=== PATIENT | male | born 1945 | race Caucasian/White ===

== ENCOUNTER → 2017-03-01 | Outpatient (CLI) | payer MEDICARE, BC ==
[~2017-03-01] MED LIST: CLON-276 PO
--- NOTE | 2017-03-01 09:54 | RAD ---
CT of the head without contrast, 03/01/2017: History: Headache, right-sided weakness, slurred speech There is mild to moderate cerebral atrophy, most prominent in the frontal regions. The ventricles are within normal limits in size. There is no shift of the midline structures. There is no evidence of acute intracranial hemorrhage or mass effect. Air-fluid levels are present in the left maxillary sinus and the right sphenoid sinus. There is moderate mucosal thickening in both ethmoid sinuses. IMPRESSION: 1. Cerebral atrophy. 2. No acute intracranial abnormality is detected. 3. Paranasal sinusitis. PQRS Compliance Statement: One or more of the following individualized dose reduction techniques were utilized for this examination: 1. Automated exposure control 2. Adjustment of the mA and/or kV according to patient size 3. Use of iterative reconstruction technique
== END | disposition home or self-care (01) ==
LOC: RAD 09:04
PROVIDERS: ATTEND Physician Assistant
DX: G31.89 Other specified degenerative diseases of nervous system (principal); J32.9 Chronic sinusitis, unspecified
CPT/HCPCS: 70450

== ENCOUNTER 2017-03-03 20:21 | Emergency (ER) | payer MEDICARE, BC ==
[~2017-03-03] VITALS: Ht 175.3 cm; Wt 74.8 kg
--- NOTE | 2017-03-03 20:40 | PHYS DOC ---
General Chief Complaint: HYPERTENSION Stated Complaint: HIGH BLOOD PRESSURE,MINI STROKE FEB 28 Time Seen by MD: 20:25 Source: patient Exam Limitations: no limitations Problems: History of Present Illness Initial Comments Patient is a 72-year-old male who comes to the ED complaining of uncontrolled blood pressure. Patient states that he endured what he calls a "mini stroke" 2 days ago experiencing a severe headache with right-sided facial droop and right sided upper and lower extremity weakness. He says he saw his primary care provider and CT of the head was negative, he was not admitted to the hospital and no further testing was undertaken. He was advised to closely monitor his blood pressure at home and takes lisinopril 20 mg daily. They use an electric blood pressure monitor at home and state that his readings since Sunday have consistently been in the 170s over 90s. Tonight while watching Taty shows his systolic pressure was in the 190s and they felt they needed to come be seen in the emergency department. Patient denies any headache vision change or new neurologic deficit and in fact states that the deficits suffered 2 days ago have been improving somewhat. He is scheduled to see a lead oracle developer for carotid another vascular evaluations, denies any chest pain shortness of breath nausea or vomiting. On arrival his systolic pressures in the 170s and he is asymptomatic. Timing/Duration: other Severity: moderate Modifying Factors: improves with other Associated Symptoms: other Allergies: Coded Allergies: No Known Drug Allergies (Unverified , 10/04/13) Past Medical History Medical History: CVA/TIA/stroke, hypertension Surgical History: noncontributory Social History Smoker: non-smoker Alcohol: none Drugs: none Review of Systems Constitutional: denies chills, denies diaphoresis, denies fever, denies malaise EENTM: see HPI Respiratory: denies cough, denies shortness of breath, denies wheezing Cardiovascular: denies chest pain, denies palpitations, denies syncope Gastrointestinal: denies abdominal pain, denies nausea, denies vomiting Musculoskeletal: denies back pain, denies joint swelling, denies neck pain Psychiatric/Neurological: see HPI Hematologic/Lymphatic: denies blood clots, denies easy bleeding, denies easy bruising Physical Exam General Appearance: WD/WN, moderate distress (anxious) Eyes: bilateral eye normal inspection, bilateral eye PERRL, bilateral eye EOMI Ear, Nose, Throat: hearing grossly normal, normal ENT inspection Neck: non-tender, supple Respiratory: chest non-tender (moderate pectus excavator deformity), normal breath sounds, no respiratory distress Cardiovascular: normal peripheral pulses, regular rate, rhythm Gastrointestinal: non tender, soft Back: no CVA tenderness, no vertebral tenderness Extremities: normal range of motion, non-tender Neurologic/Psychiatric: alert, oriented x 3, other (anxious, right upper and lower extremity muscle strength 4/5 left is 5 over 5, right sided facial droop) Skin: normal color, warm/dry Orders, Labs, Meds EKG: Normal sinus rhythm 71 bpm, normal axis and no ST segment elevation. Interpreted by me Patient received Lopressor 5 mg IV and his blood pressure improved to 160/70's. No improvement in symptoms as he was asymptomatic in the first place. However the patient is much less anxious. I discussed blood pressure and hypertensive emergencies as well as how they relate to CVAs. I discussed prescription medication and adding clonidine for when necessary use until he can see his doctor for blood pressure medication titration. Signs and symptoms to monitor as well as urgent indication to return to the department were discussed the patient and his 's questions were answered. He expressed agreement and understanding with treatment plan. Departure Time of Disposition: 21:52 Disposition: HOME, SELF-CARE Diagnosis: HTN uncontrolled, h/o CVA Condition: GOOD Patient Instructions: Hypertension, Yywo-af-Cmph Additional Instructions: Rest no strenuous activity. Continue current medications. Prescription: Clonidine 0.2, take one twice daily when necessary blood pressure greater than 170/90. Follow-up with your doctor on Sunday for recheck and medication titration. Return to ED with new or changing symptoms. DILIA JUDGE DO Mar 03, 2017 20:40
--- NOTE | 2017-03-03 20:57 | EKG ---
[address] [address] Test Date: 2017-03-03 Test Time: 20:37:24 Pat Name: FRANK LINDSEY Department: Room: Gender: M Shoe Cleaner: ELIANA : 1945 Requested By: DILIA JUDGE Order Number: [id number] Reading MD: Felipe Linares MD Measurements Intervals Johnson Rate: 71 P: 48 ID: [id number] QRS: 34 QRSD: 94 T: 11 QT: 388 QTc: 426 Interpretive Statements SINUS RHYTHM Electronically Signed On 03-12-2017 11:53:43 WOUND/OSTOMY CLINICAL NURSE SPECIALIST by Felipe Linares MD
[2017-03-03] MEDS ORDERED: METOPROLOL TARTRATE 5 MG/5 ML VIAL. IV ONE (21:15)
[2017-03-03] MEDS ORDERED: CLON-276 PO (21:50)
[2017-03-03 22:08] VITALS: BP 155/80
== END 2017-03-03 22:06 | disposition home or self-care (01) ==
LOC: ER 20:21
DX: I10 Essential (primary) hypertension (principal); Z86.73 Personal history of transient ischemic attack (TIA), and cerebral infarction without residual deficits
CPT/HCPCS: 93005; 96374; 99284; J3490

== ENCOUNTER 2017-03-07 22:26 | Emergency (ER) | payer MEDICARE, BC ==
[~2017-03-07] VITALS: Ht 175.3 cm; Wt 74.8 kg
--- NOTE | 2017-03-07 22:43 | PHYS DOC ---
Past History Past Medical History: Arthritis, CVA, High Cholesterol, Hyperthyroid, Stroke, TIA Past Surgical History: No Surgical History Smoking: Chew Alcohol Use: None Drug Use: None Adult General HPI HPI Patient is a 72-year-old male presenting to the emergency department for evaluation of hypertension. Patient has had an interesting past week as he was seen in his primary care's office and had a TIA and had a negative CT and now is set up for outpatient testing including MRI. He is on a full dose aspirin and has been checking his blood pressure rather regularly is a broad entire to pages worth of blood pressures with them. He was seen in this emergency department and told to take clonidine for systolic over 170 or diastolic over 90. His primary care provider added hydrochlorothiazide 25 mg to his regimen on Sunday and he is also taking 20 mg of lisinopril daily for his blood pressure. He took a clonidine at approximately 8 PM tonight and retook his blood pressure and it was still in the 190/90 range and he was concerned that he would have a stroke so he came to the emergency department. Patient is completely asymptomatic at this time with no headache fevers chills nausea vomiting shortness of breath chest pain unilateral weakness numbness tingling slurred speech or other neurologic symptoms. Review of Systems Review of Systems Constitutional: Denies fever or chills [] Eyes: Denies change in visual acuity, redness, or eye pain [] HENT: Denies nasal congestion or sore throat [] Respiratory: Denies cough or shortness of breath [] Cardiovascular: No additional information not addressed in HPI [] GI: Denies abdominal pain, nausea, vomiting, bloody stools or diarrhea [] : Denies dysuria or hematuria [] Musculoskeletal: Denies back pain or joint pain [] Integument: Denies rash or skin lesions [] Neurologic: Denies headache, focal weakness or sensory changes [] Endocrine: Denies polyuria or polydipsia [] All other systems were reviewed and found to be within normal limits, except as documented in this note. Allergies Allergies Allergies Coded Allergies Type Severity Reaction Last Updated Verified No Known Drug Allergies 10/04/13 No Physical Exam Physical Exam Constitutional: Well developed, well nourished, no acute distress, non-toxic appearance. [] HENT: Normocephalic, atraumatic, bilateral external ears normal, oropharynx moist, no oral exudates, nose normal. [] Eyes: PERRLA, EOMI, conjunctiva normal, no discharge. [] Neck: Normal range of motion, no tenderness, supple, no stridor. [] Cardiovascular:Heart rate regular rhythm, no murmur [] Lungs & Thorax: Bilateral breath sounds clear to auscultation [] Abdomen: Bowel sounds normal, soft, no tenderness, no masses, no pulsatile masses. [] Skin: Warm, dry, no erythema, no rash. [] Back: No tenderness, no CVA tenderness. [] Extremities: No tenderness, no cyanosis, no clubbing, ROM intact, no edema. [] Neurologic: Alert and oriented X 3, normal motor function, normal sensory function, no focal deficits noted. [] Psychologic: Affect normal, judgement normal, mood normal. [] EKG EKG [] Radiology/Procedures Radiology/Procedures [] Course & Med Decision Making Course & Med Decision Making Patient essentially being seen for asymptomatic hypertension. He is checking his blood pressure all the time and is likely very anxious about it. I am not a big proponent of using clonidine for blood pressure so he should just have his medications that he is on maximized in my opinion and then if needed and other agents such as Norvasc. He is on 20 mg of lisinopril currently so this will be doubled to 40 daily and he was told to follow with primary care provider on Sunday or Sunday and come back to the ED sooner with worsening pain shortness of breath neurologic symptoms or other general concerns. Patient and aware and agreeable with plan and verbalized understanding of the above instructions. Dragon Disclaimer Dragon Disclaimer This electronic medical record was generated, in whole or in part, using a voice recognition dictation system. Departure Departure: Impression: Primary Impression: Hypertension Disposition: 01 HOME, SELF-CARE Condition: STABLE Referrals: ROLO GARCIA MD (PCP) Patient Instructions: Arterial Hypertension Additional Instructions: TAKE 40MG OF YOUR LISINOPRIL DAILY WHICH IS DOUBLE WHAT YOU ARE ON NOW. KEEP TAKING THE HCTZ 25MG. ONLY TAKE THE CLONIDINE IF YOUR NUMBER IS OVER 180/90. FOLLOW WITH YOUR PCP SUNDAY OR SUNDAY TO GO OVER YOUR MEDICATIONS AND COME BACK TO THE ED WITH WORSENING PAIN, WEAKNESS, OR OTHER GENERAL CONCERNS. THANK YOU! Scripts Lisinopril (LISINOPRIL) 40 Mg Tablet 1 TAB PO DAILY, #30 TAB 0 Refills Prov: KALLIE CHRISTIAN DO 03/07/17 Problem Qualifiers Primary Impression: Hypertension Hypertension type: essential hypertension Qualified Codes: I10 - Essential ( primary) hypertension KALLIE CHRISTIAN DO Mar 07, 2017 22:43
[2017-03-07] MEDS ORDERED: LISI40TA PO (23:16)
[2017-03-07] MEDS ORDERED: LISINOPRIL 10 MG TABLET ONE (23:21)
[2017-03-07 23:30] VITALS: BP 157/78
[2017-03-07] MEDS ORDERED: LISINOPRIL 10 MG TABLET PO ONE (23:30)
== END 2017-03-07 23:40 | disposition home or self-care (01) ==
LOC: ER 22:26
DX: I10 Essential (primary) hypertension (principal); E05.90 Thyrotoxicosis, unspecified without thyrotoxic crisis or storm; E78.00 Pure hypercholesterolemia, unspecified; F17.220 Nicotine dependence, chewing tobacco, uncomplicated; Z86.73 Personal history of transient ischemic attack (TIA), and cerebral infarction without residual deficits
CPT/HCPCS: 99282; 99283

== ENCOUNTER 2020-06-05 21:51 | Emergency (ER) | payer MEDICARE, BC ==
[~2020-06-05] VITALS: Ht 177.8 cm; Wt 79.5 kg
[~2020-06-05 21:51] MED LIST changes: +LISI40TA6 PO
--- NOTE | 2020-06-05 22:03 | PHYS DOC ---
Past History Past Medical History: Arthritis, CVA, High Cholesterol, Hyperthyroid, Stroke, TIA Past Surgical History: No Surgical History Smoking: Chew Alcohol Use: None Drug Use: None General Adult HPI: HPI: ".. I ve been having pretty good reaction to the COVID shot.. it my second one..the lst was on ..and I got my second on June 02..and been running a fever, aches.. and now I had some red colored urine.. I ve been drinking..but not had any urine..out.." Patient is a 75 year old male who presents with above hx and complaints of hematuria. Patient also complaining of myalgia, malaise, arthralgia, fever and localized reaction for his second Covid shot. Patient initial vaccine was on May 05. Pt. had Moderna vaccination. . Repeat vaccination was on June 02. Pt. has localized reaction and warmth at injection site. Patient has had some issues with urinary retention in the past but states he is concerned because he has not urinated at all today. Pt. complaints of fever. Patient states he has been drinking fluids. Patient denies other health issues. Pt. follows with Dr. Garcia. Pt. has past medical hx of arthritis,, CVA, elevated cholesterol, hypothyroidism, hypertension, TIAs, and urinary retention. Patient patient does still chew tobacco. Review of Systems: Review of Systems: Constitutional: Complains of fever or chills since Moderna vaccination #2 Eyes: Denies change in visual acuity HENT: Denies nasal congestion or sore throat Respiratory: Denies cough or shortness of breath Cardiovascular: Denies chest pain or edema GI: Denies abdominal pain, nausea, vomiting, bloody stools or diarrhea : Complains of decreased urine output and hematuria Musculoskeletal: Denies back pain or joint pain Integument: Denies rash Neurologic: Denies headache, focal weakness or sensory changes Endocrine: Denies polyuria or polydipsia Lymphatic: Denies swollen glands Psychiatric: Denies depression or anxiety Family History: Family History: Noncontributory to presentation Current Medications: Current Meds: See nursing for home meds Allergies: Allergies: Allergies Coded Allergies Type Severity Reaction Last Updated Verified No Known Drug Allergies 10/04/13 No Physical Exam: PE: Constitutional: Moderate acute distress, non-toxic appearance. [] HENT: Normocephalic, atraumatic, bilateral external ears normal, oropharynx dry, no oral exudates, nose slightly swollen turbinates with rhinorrhea Eyes: PERRLA, EOMI, conjunctiva normal, no discharge. [] Neck: Normal range of motion, no tenderness, supple, no stridor. [] Cardiovascular: Tachycardia heart rate regular rhythm, no murmur, PMI to the left Lungs & Thorax: Bilateral breath sounds equal apex with a few scattered wheezes on auscultation [] Abdomen: Bowel sounds decreased, soft, no tenderness, no masses, no pulsatile masses. [] No rebound. Circumcised male. Testicles descended. Bladder does not appear to be enlarged. Patient declines rectal exam at this time. No flank tenderness. Skin: Warm, dry, no erythema, no rash. Poor turgor Back: No tenderness, no CVA tenderness. [] Extremities: No tenderness, no cyanosis, no clubbing, ROM intact, no edema. No psoas sign. No cording appreciated. Arthritic changes. Neurologic: Alert and oriented X 3, normal motor function, normal sensory function, no focal deficits noted. [] Psychologic: Affect anxious, judgement normal, mood normal. [] EKG: EKG: [] Radiology/Procedures: Radiology/Procedures: [] Heart Score: C/O Chest Pain: N/A Risk Factors: Risk Factors: DM, Current or recent (<one month) smoker, HTN, HLP, family history of CAD, obesity. Risk Scores: Score 0 - 3: 2.5% MACE over next 6 weeks - Discharge Home Score 4 - 6: 20.3% MACE over next 6 weeks - Admit for Clinical Observation Score 7 - 10: 72.7% MACE over next 6 weeks - Early Invasive Strategies Course & Med Decision Making: Course & Med Decision Making dPertinent Labs and Imaging studies reviewed. (See chart for details) Bedside bladder scan shows no accumulation of urine. Patient received 2 L of lactated Ringer's. With finally production of urine. Patient does have hematuria but high white count and RBC count with moderate bacteria and nitrates. Patient received a gram of Rocephin. Patient push fruit juices. Take Tylenol 1 g up to every 6 hours for fever and discomfort. Patient take Cipro 500 mg twice a day. Patient to follow-up cultures. Return if any concerns. Follow-up primary care. Impression: 1. Urinary tract infection 2. Dehydration 3. Fever 4. Post Moderna vaccination # 2. 5. Elevated creatinine 1.4 6. Elevated leukocytosis 17.1 7. Mild anemia hemoglobin 11.7 [] Dragon Disclaimer: Dragon Disclaimer: This electronic medical record was generated, in whole or in part, using a voice recognition dictation system. Departure Departure: Referrals: ROLO GARCIA MD (PCP) Scripts Ciprofloxacin Hcl (CIPRO) 500 Mg Tablet 500 MG PO BID for UTI for 10 Days, #20 TAB Prov: MOSES SINGH MD 06/06/20 Dragon Disclaimer This chart was dictated in whole or in part using Voice Recognition software in a busy, high-work load, and often noisy Emergency Department environment. It may contain unintended and wholly unrecognized errors or omissions. Dragon Disclaimer This chart was dictated in whole or in part using Voice Recognition software in a busy, high-work load, and often noisy Emergency Department environment. It may contain unintended and wholly unrecognized errors or omissions. MOSES SINGH MD Jun 05, 2020 22:03
[2020-06-05 23:49] LABS: BASO % 0 % (0-3); EOS % 0 % (0-3); HEMATOCRIT 35.3 % (39.0-53.0); HEMOGLOBIN 11.7 g/dL (13.0-17.5); LYMPH # 0.7 x10^3/uL (1.0-4.8); LYMPH % 4 % (24-48); MEAN CORPUSCULAR HEMOGLOBIN 30 pg (25-35); MEAN CORPUSCULAR HGB CONC 33 g/dL (31-37); MEAN CORPUSCULAR VOLUME 90 fL (79-100); MONO # 1.6 x10^3/uL (0.0-1.1); MONO % 9 % (0-9); NEUT # 14.8 x10^3uL (1.8-7.7); NEUT % 87 % (31-73); PLATELET COUNT 149 x10^3/uL (140-400); RED BLOOD COUNT 3.92 x10^6/uL (4.30-5.70); RED CELL DISTRIBUTION WIDTH 14.2 % (11.5-14.5); WHITE BLOOD COUNT 17.1 x10^3/uL (4.0-11.0)
[2020-06-05 23:54] LABS: CALCIUM 8.3 mg/dL (8.5-10.1); CREATININE 1.4 mg/dL (0.7-1.3); GFR 49.4; POTASSIUM 3.7 mmol/L (3.5-5.1)
[2020-06-06] MEDS ORDERED: IV RINGERS SOLUTION,LACTATED 1,000 ML IV ONE ×2 (00:15→01:00)
[2020-06-06 00:28] VITALS: BP 128/69
[2020-06-06 00:39] LABS: BILIRUBIN,URINE NEG (NEG); CLARITY,URINE HAZY; COLOR,URINE AMBER; GLUCOSE,URINE NEG (NEG); NITRITE,URINE POS (NEG); UROBILINOGEN,URINE 0.2 mg/dL (0.2 mg/dL)
[2020-06-06 00:40] LABS: BACTERIA,URINE MOD /HPF (0-FEW); RBC,URINE TNTC /HPF (0-2); WBC,URINE TNTC /HPF (0-4)
[2020-06-06] MEDS ORDERED: ACETAMINOPHEN 500 MG TABLET PO ONE ×2 (00:42→01:00)
[2020-06-06] MEDS ORDERED: CIPR500T94 PO (00:50)
[2020-06-06] MEDS ORDERED: cefTRIAXone SODIUM 1 GM VIAL ONE (00:53)
[2020-06-06] MEDS ORDERED: IV NORMAL SALINE 50ML 50 ML ONE (00:53)
[2020-06-06] MEDS ORDERED: CIPROFLOXACIN HCL 500 MG TABLET PO ONE (01:30)
[2020-06-06 05:04] LABS: % BANDS 1 % (0-9); % LYMPHS 6 % (24-48); % MONOS 2 % (0-10); % SEGS 91 % (35-66); PLT ESTIMATE DECREASED (ADEQUATE)
== END 2020-06-06 01:25 | disposition home or self-care (01) ==
LOC: ER 21:51
DX: N39.0 Urinary tract infection, site not specified (principal); E86.0 Dehydration; D72.829 Elevated white blood cell count, unspecified; D64.9 Anemia, unspecified; R79.89 Other specified abnormal findings of blood chemistry; M19.90 Unspecified osteoarthritis, unspecified site; E78.00 Pure hypercholesterolemia, unspecified; E05.90 Thyrotoxicosis, unspecified without thyrotoxic crisis or storm; F17.220 Nicotine dependence, chewing tobacco, uncomplicated; Z86.73 Personal history of transient ischemic attack (TIA), and cerebral infarction without residual deficits
CPT/HCPCS: 36415; 80048; 81001; 85007; 85025; 87086; 96361; 96374; 99284; J0696; J7120